=== PATIENT | male | born 1960 | race Hispanic/Latino ===

== ENCOUNTER → 2023-02-07 | Outpatient (CLI) | payer OTHER | LOC: RAD 10:49 | PROVIDERS: ATTEND Family Medicine | DX: M25.512 Pain in left shoulder (principal); M25.511 Pain in right shoulder; M79.642 Pain in left hand ==

== ENCOUNTER → 2024-08-28 | Outpatient (REF) | payer OTHER | LOC: US 08:37 | PROVIDERS: ATTEND Family Medicine | DX: R74.01 Elevation of levels of liver transaminase levels (principal) | CPT/HCPCS: 76705 ==